=== PATIENT | female | born 1990 | race Two or more races ===

== ENCOUNTER → 2024-09-09 | Emergency (ER) | payer OTHER ==
[~2024-09-09] VITALS: Ht 160 cm; Wt 64.9 kg
[~2024-09-09] MED LIST: 0.9 % SODIUM CHLORIDE 1,000 ML IV ONE; 0.9 % SODIUM CHLORIDE 1,000 ML IV SCH; ADERALL; AMLODIPINE BESYL5 MG; BARIUM SULFATE 450 ML ORAL.SUSP PO ONE; CIPROFLOXACIN IN 5 % DEXTROSE 100 ML IV SCH; CIPROFLOXACIN IN 5 % DEXTROSE 200 ML IV NR; CIPROFLOXACIN IN 5 % DEXTROSE 400 MG/200 ML PIGGYBAG IV ONE; FAMOTIDINE/PF 20 MG/2 ML VIAL ONE; FAMOtidine 10 MG/ML (4ML VIAL) IV ONE; KETOROLAC TROMETHAMINE 60 MG VIAL IM ONE; MEPERIDINE HCL 25 MG/ML AMPUL IM ONE; MEPERIDINE HCL/PF 50 MG/ML VIAL IM ONE; METRONIDAZOLE/SODIUM CHLORIDE 100 ML IV SCH; METRONIDAZOLE/SODIUM CHLORIDE 500 MG/100 ML PIGGYBACK IV ONE; MORPHINE SULFATE 4 MG/ML CARTRIDGE IV ONE; MORPHINE SULFATE 4 MG/ML VIAL IV SCH; ONDANSETRON HCL 2 MG/ML VIAL IV ONE; ONDANSETRON HCL 2 MG/ML VIAL IV STA; ONDANSETRON HCL 2 MG/ML VIAL ONE; OxyCODONE HCL/APAP UD (PERCOCET) PO ONE; PANTOPRAZOLE SODIUM 40 MG/VIAL VIAL IV ONE; PROMETHAZINE HCL 25 MG/ML AMPUL IM ONE; PROMETHAZINE HCL 25 MG/ML AMPUL ONE; PROMETHAZINE HCL 50 MG/ML AMPUL IM ONE; RINGERS SOLUTION,LACTATED 1,000 ML IV SCH; THIAMINE HCL 100 MG/ML 2 ML VIAL IV ONE; THIAMINE HCL 100 MG/ML 2 ML VIAL ONE
[2024-09-09 19:51] LABS: HEMATOCRIT 37.8 % (36.0-45.00); HEMOGLOBIN 13.1 g/dL (12.0-15.00); MEAN CELL VOLUME 96.2 fL (80.00-100.00); MEAN CORPUSCULAR HEMOGLOBIN 33.3 pg (27.00-32.0); MEAN CORPUSCULAR HGB CONC 34.6 g/dl (32.0-36.0); PLATELET COUNT 347 K/uL (150-450); RED BLOOD COUNT 3.93 M/uL (4.00-6.00); RED CELL DISTRIBUTION WIDTH 13.3 % (11.5-14.5)
[2024-09-09 20:16] LABS: ALBUMIN 4.4 gm/dL (3.4-5.0); ALKALINE PHOSPHATASE 96 U/L (50-136); ALT/SGPT 31 U/L (12-78); AMYLASE 210 U/L (25-115); ANION GAP 19 (10.0-20.0); AST/SGOT 26 U/L (15-37); BILIRUBIN TOTAL 0.63 mg/dL (0.3-1.2); BLOOD UREA NITROGEN 6 mg/dL (7-18); BUN CREA RATIO 9 (7.0-25.0); CALCIUM 9.8 mg/dL (8.5-10.1); CARBON DIOXIDE 22 mEq/L (21-32); CHLORIDE 102 mmol/L (98-107); CREATININE SERUM 0.67 mg/dL (0.55-1.02); GFR 101.36; GLOBULINA 3.3 G/DL (2.4-3.5); GLUCOSE FASTING 109 mg/dL (65-100); OSMOLALITY SERUM 276 MOSM/KG (275-295); POTASSIUM 3.99 mEq/L (3.5-5.1); SODIUM 139 mmol/L (136-145); TOTAL PROTEIN 7.7 gm/dL (6.4-8.2)
[2024-09-09 20:54] LABS: HCG QUANTITATIVE < 1 mUI/mL (1-3); LIPASE 796 U/L (13-75)
[2024-09-10 00:56] LABS: INR 1.09; PARTIAL THROMBOPLASTIN TIME 28.5 SECONDS (22.0-34.0); PROTHROMBIN TIME 11.8 SECONDS (9.0-11.5)
[2024-09-10 04:35] LABS: AMYLASE 258 U/L (25-115)
[2024-09-10 04:36] LABS: LIPASE 1008 U/L (13-75)
[2024-09-10 05:57] LABS: PH,URINE 5.5 (5.0-8.0); URINE APPEARANCE Clear; URINE BILIRRUBIN Negative (NEGATIVE); URINE BLOOD Negative; URINE COLOR Yellow; URINE GLUCOSE Negative (NEGATIVE); URINE LEUKOCYTE Negative; URINE NITRATE Negative; URINE PROTEIN Negative (NEGATIVE); URINE UROBILINOGEN 0.2 E.U./dl
[2024-09-10 06:00] LABS: URINE BACTERIA 1013.2 uL (0.0-1933); URINE EPITHELIAL CELLS 30.2 uL (0.0-38.8); URINE WBC 8.3 uL (0.0-23.2)
[2024-09-10 06:10] LABS: URINE CAST 0.14 uL (0.0-1.40); URINE KETONE >=160 (NEGATIVE); URINE RBC 0.2 uL (0.0-20.8)
[2024-09-10 18:02] VITALS: BP 124/84; O2SAT 98
[2024-09-10 18:59] LABS: MAGNESIUM 1.8 mg/dL (1.8-2.4)
== END | disposition left against medical advice (07) ==
LOC: ER 18:25
PROVIDERS: General Practice
DX: R11.10 Vomiting, unspecified (principal); I10 Essential (primary) hypertension
CPT/HCPCS: 36415; 71045; 74177; 76700; 93005; 93041; 96365; 96366; 99284; J0744; J2270 ×2; J2405 ×2; J3490 ×4; J7030; Q9965